=== PATIENT | male | born 1995 | race African-American/Black ===

== ENCOUNTER 2020-07-27 17:18 | Emergency (ER) | payer SELFPAY ==
[~2020-07-27] VITALS: Ht 172.7 cm; Wt 61.2 kg
[2020-07-27] MEDS ORDERED: Ketorolac 30mg Inj IM ONE (17:45)
[2020-07-27] MEDS ORDERED: Lidocaine 1% MPF 10mg/ml 5ml INJ ONE (17:45)
[2020-07-27] MEDS ORDERED: Azithromycin 250mg tab ORAL ONE (17:45)
--- NOTE | 2020-07-27 17:59 | Emergency Room Report ---
History of Present Illness General Chief Complaint: Skin Rash/Abscess Source: Patient Present Illness HPI 24-year-old male with no signal past medical history here complaining of 4 days of left-sided groin pain with a mass that is tender to touch. Reports that started 2 days after he sexually active. Denies any fall or injury. Denies fever and chills, chest pain, shortness of breath, cough and congestion. Has not taken medication for symptom relief. Denies any urinary frequency urgency, hematuria, penile discharge. Allergies: Coded Allergies: No Known Allergies (Unverified , 07/27/20) COVID-19 Screening Contact w/high risk pt: No Experienced COVID-19 symptoms?: No COVID-19 Testing performed [facility]IDE [facility]: No Patient History Past Medical History: see triage record Past Surgical History: none Pertinent Family History: none Immunizations: UTD Reviewed Nursing Documentation: PMH: Agreed; PSxH: Agreed Nursing Documentation-PM Past Medical History: No Stated History Review of Systems All Other Systems: negative except mentioned in HPI Physical Exam Vital Signs Date Time Temp Pulse Resp B/P (MAP) Pulse Ox O2 Delivery O2 Flow Rate FiO2 07/27/20 17:21 98.4 91 16 110/69 (83) 95 Room Air Sp02 EP Interpretation: reviewed, normal General Appearance: alert, GCS 15, non-toxic, mild distress Head: normocephalic, atraumatic Eyes: bilateral eye normal inspection, bilateral eye PERRL ENT: hearing grossly normal, no angioedema, normal voice Neck: supple Respiratory: no respiratory distress, no retraction, no accessory muscle use Cardiovascular #1: regular rate, rhythm Cardiovascular #2: 2+ femoral (R), 2+ femoral (L) Gastrointestinal: soft, no hernia Genitourinary: other - Left-sided scrotal mass suprapubic Musculoskeletal: back normal Neurologic: alert, motor strength/tone normal, oriented x3, sensory intact, responsive, speech normal Psychiatric: judgement/insight normal, memory normal, mood/affect normal, no suicidal/homicidal ideation Skin: other - Mobile tender mass left inguinal suprapubic Lymphatic: inguinal node tender (L) Medical Decision Making PA Attestation All diagnosis and treatment plans were discussed and reviewed by my supervising physician Dr. Magallon Diagnostic Impression: Primary Impression: Epididymal cyst ER Course 24-year-old male with no signal past medical history here complaining of 4 days of left-sided groin pain with a mass that is tender to touch. Reports that started 2 days after he sexually active. Denies any fall or injury. Denies fever and chills, chest pain, shortness of breath, cough and congestion. Has not taken medication for symptom relief. Denies any urinary frequency urgency, hematuria, penile discharge. Ddx considered but are not limited to : Testicular torsion, cellulitis, epididymitis, varicocele, hydrocele, superficial infection, abscess Vital signs: are WNL, pt. is afebrile H&PE are most consistent with: Epidermal cyst ORDERS: Scrotal ultrasound, doxycycline ED INTERVENTIONS: Rocephin IM, azithromycin, Toradol IM DISCHARGE: At this time pt. is stable for d/c to home. Will provide printed patient care instructions, and any necessary prescriptions. Care plan and follow up instructions have been discussed with the patient prior to discharge. Take medication as directed, follow primary care provider, if worsening symptoms return to the emergency room. CT/MRI/US Diagnostic Results CT/MRI/US Diagnostic Results : Imaging Test Ordered: Scrotal ultrasound Impression Epididymal cyst Last Vital Signs Date Time Temp Pulse Resp B/P (MAP) Pulse Ox O2 Delivery O2 Flow Rate FiO2 07/27/20 17:21 98.4 91 16 110/69 (83) 95 Room Air Disposition: HOME, SELF-CARE Condition: Stable Referrals: NOT CHOSEN IPA/MD,REFERRING (PCP) Patient Instructions: Epidermal Cyst Additional Instructions: Take medication as directed, avoid sexual encounter until the lesion has healed, he may start prednisone, make sure you are compliant with antibiotics, if worsening symptoms, fever and chills return to the emergency room Kris Andre Jul 27, 2020 17:59
--- NOTE | 2020-07-27 18:00 | NUR ---
ED Nurse Note:pt. came from home with c/o left groin pain and swelling, he was examed by ER PA, then given antibiotics and pain meds
[2020-07-27 18:48] VITALS: BP 110/69
[2020-07-27] MEDS ORDERED: IBU800 MG PO (20:21)
[2020-07-27] MEDS ORDERED: DOXYCYCLINE HY100 M6 PO (20:21)
[2020-07-27 20:40] VITALS: BP 116/78
--- NOTE | 2020-07-27 20:40 | NUR ---
ER DISCHARGE NOTE: Patient is cleared to be discharged per ERMD. Pt is aox4, on room air, with stable vital signs. Pt was given dc and prescription instructions; pt was able to verbalize understanding. Informed pt to follow up [facility] PCP within 7 days. Pt id band removed without complications. Pt is able to ambulate with steady gait. Pt took all belongings.
--- NOTE | 2020-07-27 20:56 | Diagnostic Imaging Report ---
EXAM: US Scrotum CLINICAL HISTORY: MASS TECHNIQUE: Real-time ultrasound of the scrotum with color Doppler and image documentation. COMPARISON: No relevant prior studies available. FINDINGS: Right testicle: The right testicle measures 4.9 x 3.1 x 2.3 cm. No torsion. Left testicle: The left testicle measures 4.4 x 2.4 x 2.9 cm. No torsion. Epididymides: There is a small left epididymal head cyst measuring 3 mm. Scrotum: There are trace bilateral hydroceles. Left scrotal superficial fluid collection measuring 2.8 x 2.2 x 2.0 cm. There is thickened wall with peripheral vascularity. IMPRESSION: 1. 2.8 cm left scrotal abscess. 2. Normal sonographic appearance of the bilateral testicles.
== END 2020-07-27 20:40 | disposition home or self-care (01) ==
LOC: EMR 17:40
DX: L72.0 Epidermal cyst (principal)
CPT/HCPCS: 76870; 96372; 99283; J0696; J1885